=== PATIENT | male | born 1955 | race Caucasian/White ===

== ENCOUNTER 2024-10-12 12:18 | Emergency (ER) | payer MEDICARE, OTHER, SELFPAY ==
--- OUTSIDE RECORDS SUMMARY | 2024-10-12 12:32 | XMS_ITS | Clinical Summary ---
Author Organization [facility] Address [address] [place] [id number] Care Team Providers Care Government Clerk Name Role Phone Ken Chun MD Primary Care Provider [phone] Allergies Active Allergy Reactions Criticality Noted Date Comments Cefprozil Other (See comments) Low Yellow eyes Medications doxazosin (CARDURA) 2 mg tablet Take 1 tablet (2 mg total) by mouth nightly 30 tablet 11 12/15/2023 Active fexofenadine (ISAIAS) 180 mg tablet TAKE 1 TABLET BY MOUTH EVERY DAY 90 tablet 3 12/22/2023 Active atorvastatin (LIPITOR) 40 mg tablet TAKE 1 TABLET BY MOUTH EVERY DAY 90 tablet 3 01/09/2024 Active aspirin 81 mg chewable tablet CHEW ONE TABLET BY MOUTH ONCE DAILY 90 tablet 3 06/01/2024 Active Active Problems Problem Noted Date Diagnosed Date Hyperlipidemia 08/16/2024 Assessment & Plan (08/16/2024 4:28 PM X [employer]AY [employer]LECTRON[employer] WIRING TECHNICIAN): Stable on statin theapry. No new myalgias/arthalgias. BMI 32.0-32.9,adult 08/16/2024 Assessment & Plan (08/16/2024 4:28 PM X [employer]AY ELECTRON[employer] WIRING TECHNICIAN): As above. Coracoid impingement of left shoulder 08/16/2024 Assessment & Plan (08/16/2024 4:29 PM X [employer]AY ELECTRON[employer] WIRING TECHNICIAN): Symmetrical range of motion to the bialteral UE. + impingmenet signs on exam. No evidence of biceps tendonitis. Will follow respnose. Refer to orthopedics. Encounter for Medicare annual wellness exam 03/09 Assessment & Plan (03/31/2024 9:47 AM CDT): Visit preventive in nature. We reviewed medications, chronic conditions, risk factors, lifestyle recommendations. Reviewed immunization recommendations. Follow-up in 6 months for chronic conditions and 1 year for annual wellness. Benign prostatic hyperplasia with urinary freque ncy 03/30/2024 Assessment & Plan (08/16/2024 4:28 PM X [employer]AY [employer] WIRING TECHNICIAN): Stable on doxazosin and will follow response. No orthostasis. Assessment & Plan (03/30/2024 4:08 PM CDT): Patient reports frequency is better. Repeat UA today. Continue doxazosin as prescribed. Obesity (BMI 30.0-34.9) 03/30/2024 Assessment & Plan (08/16/2024 4:28 PM X [employer]AY ELECTRON[employer] WIRING TECHNICIAN): Encourage 150min/week aerobic exericse. Healthy food choices and will follow response. Chronic pain of right knee 08/27/2023 Assessment & Plan (08/27/2023 8:03 AM X RAY ELECTRON[employer] WIRING TECHNICIAN): Referral to orthopedics. Appreciate their expertise. Acute bacterial conjunctivitis of left eye 08/27 Assessment & Plan (08/27/2023 8:03 AM X RAY ELECTRON[employer] WIRING TECHNICIAN): Polymyxin B sent. Two drops to affected eye four times daily for 7 days. Discussed strict hand hygiene. Not to use hand towel/wasthrag/tissues on both eyes. Discussed how highly contagious it is. Aware to not touch dropper to eye/lashes; will contaminate tip of dropper. Reviewed red flags; what would warrant further evaluation. Class 1 obesity due to exces s calories with serious comorbidity and body mass index (BMI) of 31.0 to 31.9 in adult 08/27/2023 Assessment & Plan (03/30/2024 4:08 PM CDT): Continue with diet and exercise. Encounter for screening colonoscopy 03/13/2022 Overview (03/13/2022): Added automatically from request for surgery [id number] Diastasis recti 02/06/2021 Assessment & Plan (02/06/2021 9:30 AM CDT): I do not appreciate any fascial defect on exam. This to me appears more like a diastasis recti. Just for completeness however I will order a CT scan of the abdomen to better appreciate any true hernia. If this does in fact and up to just be a diastasis we have discussed physical therapy for core strengthening as well as an abdominal binder. I will call them back once the CT scan has returned. They are in understanding of the plan. Sleep apnea with use of cont inuous positive airway pressure (CPAP) 02/17/2020 Assessment & Plan (08/16/2024 4:27 PM X [employer] WIRING TECHNICIAN): Continue f/u with sleep medicine and will monitor response. Contniue to monitor response. Assessment & Plan (03/31/2024 10:04 AM CDT): Compliant with CPAP and will continue. Assessment & Plan (08/27/2023 8:03 AM X RAY ELECTRON[employer] WIRING TECHNICIAN): Continue with CPAP. Hx of adenomatous colonic polyps 12/30/2018 Overview (12/30/2018): Added automatically from request for surgery [id number] At risk for heart disease 12/23/2017 Resolved Problems Problem Noted Date Diagnosed Date Resolved Date Sleep disorder 03/09/2019 02/17/2020 Assessment & Plan (03/09/2019 11:06 AM CDT): Recommending sleep study with PSG testing given longevity of daytime hypersomnia, apneic periods noted by , and patient's desire to move forward with appropriate testing for CPAP if indicated. Further recommendations pending results of PSG testing Scleral laceration of left eye 06/30/2018 02/17/2020 Assessment & Plan (06/30/2018 2:01 PM CDT): Recommended Polytrim drops to instill to left eye 4 times a day for the next week, other precautions were all discussed office today in regard to scleral laceration I did encourage patient to follow up with us with any persistence in symptoms or certainly any worsening in symptoms including any blurred vision, eye pain or pressure, as that would indicate need for further consultation Ophthalmology. 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 12/24/2017 Mitral valve disease 01/22/2014 020 Overview (12/11/2016): MITRAL VALVE DISORDER Pure hypercholesterolemia 01/22/2014 Overview (12/11/2016): PURE HYPERCHOLESTEROLEM Encounters Date Type Department Care Team Description 10/12/2024 Nurse Triage [facility] [address] [place] [address] Ken Chun MD 10/04/2024 Telephone [facility] [address] [place] [address] Ken Chun MD 09/30/2024 8:05 AM X RAY ELECTRON[employer] WIRING TECHNICIAN Lab [facility] [address] [place] [address] Hyperlipidemia, unspecified hyperlipidemia type 09/27/2024 Telephone [facility] [address] [place] [address] Phoebe Hampton MA Labs Needed for Appointment 09/20/2024 2:10 PM X RAY E[employer]RON[employer] WIRING TECHNICIAN Ancillary Procedure [facility] Imaging at [address] [phone] Acute pain of left shoulder 09/20/2024 1:45 PM X RAY ELECTRON[employer] WIRING TECHNICIAN Office Visit [facility] Orthopedic and Sports Medicine [address] [place] [phone] Luis Angel Shelton PA Biceps tendinitis of left upper extremity (Primary Dx) 09/20/2024 Telephone [facility] Orthopedic [facility] Sports Medicine [facility] [place] [address] Angelica Gomez MA 08/30/2024 Nurse Triage [facility] [address] [address] Lizet Conrad RN 08/16/2024 2:00 PM X RAY E[employer] WIRING TECHNICIAN [facility] Visit [facility] [address] [address] Ken Chun MD Hyperlipidemia, unspecified hyperlipidemia type (Primary Dx); Sleep apnea with use of continuous positive airway pressure (CPAP); Benign prostatic hyperplasia with urinary frequency; BMI 32.0-32.9,adult; Obesity (BMI 30.0-34.9); Coracoid impingement of left shoulder from Last 3 Months Immunizations Name Administration Dates Next Due Influenza Virus Vaccine Trivalent Mdv 06/02/2024 Influenza, Quad, Adjuvantate d, Intramuscular 06/05/2023,06/17/2022 Influenza, Quadrivalent, Hig h Dose, Preservative Free, Intrr 06/18/2022,06/13/2021,06/28/2020 Influenza, Quadrivalent, Spl it, Preservative Free, Intramuscular 06/30/2018 Influenza, Split 06/08/2009 Influenza, Trivalent, High D ose, Split, Preservative Free, Intramuscular 06/18/2019 Pfizer SARS-CoV-2 Monovalent Vaccination (12+ Yrs) PURPLE 06/22/2021,11/26/2020,11/04/2020 Pneumococcal Conjugate PCV 13 12/29/2018 Pneumococcal Polysaccharide PPV23 03/06/2021 RSV Vaccine, Pref, Recombina nt, Subunit, Adjuvanted, PF, IM (Arexvy) 06/02/2024 Tdap 11/15/2009 Surgical History Surgery Date Site/Laterality Comments TONSILLECTOMY Tonsillectomy OTHER SURGICAL HISTORY cyst left neck COLONOSCOPY 03/08/2014 COLONOSCOPY 03/15/2019 Medical History Medical History Date Comments Hx Other Medical MVP Hx Other Medical mild carpal yuri yazmin synd Sleep apnea with use of cont inuous positive airway pressure (CPAP) 02/17/2020 Family History Medical History Relation Name Comments Heart disease Father Heart disease; Dementia Mother Dementia; Depression Other 1 Family history of Depression; Stroke Other 2 Family history of Stroke; Relation Name Status Comments Father Mother Other 1 Other 2 Social History Tobacco Use Types Packs/Day Years Used Date Smoking Tobacco: Never Smokeless Tobacco: Never Alcohol Use Standard Drinks/Week Comments No 0 (1 standard drink = 0.6 oz pur e alcohol) AUDIT-C Answer Date Recorded Q1: How often do you have a drink containing alc ohol? Monthly or less 08/27/2023 Q2: How many drinks containi ng alcohol do you have on a typical day when you are drinking? 1 or 2 08/27/2023 Q3: How often do you have si x or more drinks on one occasion? Never 08/27/2023 PHQ-2 Answer Date Recorded PHQ-2 Total Score (If total score is 3 or more points, staff should administer the PHQ-9) 0 08/16/2024 Sex and Gender Information Value Date Recorded Sex Assigned at Not on file Legal Sex Male 5:24 PM X RAY ELECT[employer] WIRING TECHNICIAN Gender Identity Not on file Sexual Orientation Not on file Obstetrics History Last Filed Vital Signs Vital Sign Reading Time Taken Comments Blood Pressure 113/72 09/20/2024 2:21 PM X RAY ELECTRON[employer] WIRING TECHNICIAN Pulse 56 09/20/2024 2:21 PM X RAY ELECTRON[employer] WIRING TECHNICIAN Temperature 36.5 ??C (97.7 ??F) 08/16/2024 1:59 PM CS T Respiratory Rate 18 08/16/2024 1:59 PM X RAY ELECTRON[employer] WIRING TECHNICIAN Oxygen Saturation 94% 08/16/2024 1:59 PM X RAY ELECTRON[employer] WIRING TECHNICIAN room air Inhaled Oxygen Concentration - - Weight 100.7 kg (222 lb) 09/20/2024 2:21 PM X RAY ELECTRON[employer] WIRING TECHNICIAN Height 177.8 cm (5' 10 ) 09/20/2024 2:21 PM X RAY ELECTRONICS WIRING TECHNICIAN Body Mass Index 31.85 09/20/2024 2:21 PM X RAY ELECTRONICS WIRING TECHNICIAN Plan of Treatment Health Maintenance Due Date Last Done Comments Hepatitis B Screening 1971 Zoster Vaccine (1 of 2) 2003 DTaP/Tdap/Td Vaccine (2 - Td or Tdap) 11/16/2019 11/15/2009 Covid-19 Vaccine (4 - 2023-2 5 season) 2024 06/22/2021, 11/26/2020, 11/04/2020 Prostate Cancer Screening-PSA 12/14/2024, 01/09/2023, 12/14/2021, Additional history exists Well Visit 65+ 03/30/2025 03/30/2024, 05/0 05/2023, 03/06/2021, Additional history exists Depression Screening 08/16/2025 08/16/2024, 03/30/2024, 12/15/2023, Additional history exists Fall Risk Assessment 08/16/2025 08/16/2024, 03/30/2024, 12/15/2023, Additional history exists Colon Cancer Screening-Colonoscopy 07/23/2026 07/23/2022, 03/15/2019, 03/08/2014, Additional history exists Hepatitis C Screening Completed 12/03/2016 Pneumococcal vaccine 65+ Completed 03/06/2021, 12/08 Colon Cancer Screening-CT Colonography Discontinued 07/23/2022, 03/15/2019, 03/08/2014, Additional history exists Colon Cancer Screening-DNA Stool Discontinued 07/23/2022, 03/15/2019, 03/08/2014, Additional history exists Colon Cancer Screening-FIT Discontinued 07/23, 03/15/2019, 03/08/2014, Additional history exists Colon Cancer Screening-Sigmoidoscopy Discontinued 07/23/2022, 03/15/2019, 03/08/2014, Additional history exists Influenza Vaccine Completed 06/02/2024, , 06/18/2022, Additional history exists Procedures Procedure Name Priority Date/Time Associated Diagnosis Comments EGFR Routine 09/30/2024 8:06 AM X RAY ELECTRONICS WIRING TECHNICIAN Hyperlipidemia, unspecified hyperlipidemia type DIFFERENTIAL AUTO Routine 09/30/2024 8:0 6 AM X RAY ELECTRON[employer] WIRING TECHNICIAN Hyperlipidemia, unspecified hyperlipidemia type LIPID PANEL Routine 09/30/2024 8:06 AM X RAY ELECTRONICS WIRING TECHNICIAN Hyperlipidemia, unspecified hyperlipidemia type COMPREHENSIVE METABOLIC PANEL Routine 09/30/2024 8:06 AM X RAY ELECTRONICS WIRING TECHNICIAN Hyperlipidemia, unspecified hyperlipidemia type CBC WITH AUTO DIFFERENTIAL Routine 09/30/2024 8:06 AM X RAY ELECTRONICS WIRING TECHNICIAN Hyperlipidemia, unspecified hyperlipidemia type XR SHOULDER LEFT 2 OR MORE VIEWS Schedule Routine, Read Routine (OP Routine) 09/20/2024 2:13 PM X RAY ELECTRON[employer] WIRING TECHNICIAN Acute pain of left shoulder PSA SCREEN Routine 12/15/2023 3:50 PM CDT Prostate cancer screening COLONOSCOPY 07/23/2022 7:46 AM X RAY ELECTRON[employer] WIRING TECHNICIAN HM HEPATITIS C SCREENING Routine 12/03/2016 from Last 3 Months or Most Recently Relevant to Health Maintenance Results * eGFR (09/30/2024 8:06 AM X RAY ELECTRON[employer] WIRING TECHNICIAN) eGFR 81 >=60 mL/min/1. 73 m2 Comment: Interpretive Data Reference Interval Normal ?>/= 90 mL/min/1.73m2 Mildly decreased* ? 60 - 89 mL/min/1.73m2 Mildly to moderately decreased ?45 - 59 mL/min/1.73m2 Moderately to severely decreased ??30 - 44 mL/min/1.73m2 Severely decreased ?15 - 29 mL/min/1.73m2 Kidney Failure ?< 15 ??mL/min/1.73m2 *Relative to young adult level Estimated glomerular filtration rate is determined by the 2020 CKD-EPI equation recommended by the National Kidney Foundation (A Unifying Approach to GFR Estimation: Recommendations of the NKF-ASK Task Force on Reassessing the Inclusion of Race in Diagnosing Kidney Disease, JASN 2020). The CKD-EPI equation should not be used for patients with unstable renal function and has not been validated in children and those over 70. Current interpretive data was last reviewed 2021. Testing performed by: [address], [id number] Blood 09/30/2024 8:06 AM X RAY ELECTRON[employer] WIRING TECHNICIAN 09/30/2024 12:37 PM X RAY ELECTRON[employer] WIRING TECHNICIAN Ken Chun MD LAB BLOOD ORDERABLES Samantha l Result [facility] ([place]) [facility] Department [place] [address] * Differential, auto (09/30/2024 8:06 AM X RAY ELECTRONICS WIRING TECHNICIAN) Neutrophil abs 3.5 1.5 - 6.5 K/cumm Comment:Testing performed by : [address], [address] Imm gran abs 0.0 0.0 - 0.1 K/cumm [facility] ([place]) Comment:Testing performed by : [address], [address] Lymphocyte abs 1.4 0.8 - 3.3 K/cumm [facility] ([place]) Comment:Testing performed by : [address], [address] Monocyte abs 0.4 0.2 - 0.8 K/cumm [facility] ([place]) Comment:Testing performed by : [address], [address] Eosinophil abs 0.1 0.0 - 0.5 K/cumm [facility] ([place]) Comment:Testing performed by : [address], [address] Basophil abs 0.0 0.0 - 0.1 K/cumm [facility] ([place]) Comment:Testing performed by : [address], [address] Neutrophil pct 63.6 % [facility] ([place]) Comment: Interpretive Data Percent cell count reference ranges are not reported, since discordance with absolute values may lead to misinterpretation of CBC data. Current Interpretive Data was last revised on 2017. Testing performed by: [facility], [address], [place]., [address] Imm gran pct 0.2 % [facility] ([place]) Comment: Interpretive Data Percent cell count reference ranges are not reported, since discordance with absolute values may lead to misinterpretation of CBC data. Current Interpretive Data was last revised on 2017. Testing performed by: [facility], [address] [place] [address]., [address] Lymphocyte pct 25.9 % [facility] ([place]) Comment: Interpretive Data Percent cell count reference ranges are not reported, since discordance with absolute values may lead to misinterpretation of CBC data. Current Interpretive Data was last revised on 2017. Testing performed by: [facility], [address] [place] [address]., [address] Monocyte pct 7.7 % [facility] ([place]) Comment: Interpretive Data Percent cell count reference ranges are not reported, since discordance with absolute values may lead to misinterpretation of CBC data. Current Interpretive Data was last revised on 2017. Testing performed by: [facility], [address] [place] [address]., [address] Eosinophil pct 2.0 % [facility] ([place]) Comment: Interpretive Data Percent cell count reference ranges are not reported, since discordance with absolute values may lead to misinterpretation of CBC data. Current Interpretive Data was last revised on 2017. Testing performed by: [facility], [address] [place] [address]., [address] Basophil pct 0.6 % [facility] ([place]) Comment: Interpretive Data Percent cell count reference ranges are not reported, since discordance with absolute values may lead to misinterpretation of CBC data. Current Interpretive Data was last revised on 2017. Testing performed by: [address] [address] Blood 09/30/2024 8:06 AM X RAY ELECT[employer] WIRING TECHNICIAN 09/30/2024 12:32 PM X RAY ELECTRON[employer] WIRING TECHNICIAN us Ken Chun MD LAB BLOOD ORDERABLES Samantha garcia Result [facility] ([place]) [facility] Department [place] [address] * CBC with auto differential (09/30/2024 8:06 AM X RAY ELECTRON[employer] WIRING TECHNICIAN) [facility] Signature WBC 5.4 3.8 - 9.9 K/cumm Comment:Testing performed by : [address], [address] Hgb 14.5 13.0 - 17.5 g/dL [facility] ([place]) Comment:Testing performed by : [address], [address] Hct 44.8 38.9 - 50.3 % [facility] ([place]) Comment:Testing performed by : [address], [address] Plt 204 150 - 400 K/cumm [facility] ([place]) Comment:Testing performed by : [address], [address] MPV 10.3 9.1 - 12.3 fL [facility] ([place]) Comment:Testing performed by : [address], [address] RBC 5.01 4.30 - 5.80 M/cumm [facility] ([place]) Comment:Testing performed by : [address], [address] MCV 89.4 81.3 - 96.4 fL [facility] ([place]) Comment:Testing performed by : [address], [address] MCH 28.9 27.1 - 33.3 pg [facility] ([place]) Comment:Testing performed by : [address], [address] MCHC 32.4 32.3 - 35.7 g/dL [facility] ([place]) Comment:Testing performed by : [address], [address] RDW CV 13.2 11.1 - 14.9 % [facility] ([place]) Comment:Testing performed by : [address], [address] RDW SD 42.8 35.7 - 48.1 fL [facility] ([place]) Comment:Testing performed by : [address] [place]., [address] NRBC abs 0.00 0.00 - 0.01 K/cumm [facility] ([place]) Comment:Testing performed by : [facility], [address] [place] [address]., [address] Blood 09/30/2024 8:06 AM X RAY ELECTRON[employer] WIRING TECHNICIAN 09/30/2024 12:32 PM X R[employer] ELECTRON[employer] WIRING TECHNICIAN us Ken Chun MD LAB BLOOD ORDERABLES Samantha garcia Result [facility] ([place]) [facility] Department [place] [address] * Lipid panel (09/30/2024 8:06 AM X RAY ELECT[employer] WIRING TECHNICIAN) Cholesterol 166 30 - 199 mg/dL Comment: Interpretive Data Ages < or = 19 years ??Acceptable: ? <170 mg/dL ??Borderline high: ??170-199 mg/dL ??High: ? >or= 200 mg/dL Ages > or = 20 years ??Desirable: ?<200 mg/dL ??Borderline high: ??200-239 mg/dL ??High: ? >or= 240 mg/dL Literature References: 1. Expert Panel on Integrated Guidelines for Cardiovascular Health and Risk Reduction in Children and Adolescents. Pediatrics 2011;128:S213 2. NCEP Expert Panel. Circulation 2004;110:227 Current Interpretive Data was last revised on 2018. Testing performed by: [facility], [address] [place] [address]., [address] Triglycerides 79 <=149 mg/dL [facility] ([place]) Comment: Interpretive Data Ages < or = 9 years ??Acceptable: ? <75 mg/dL ??Borderline high: ??75-99 mg/dL ??High: ? >or= 100 mg/dL Ages 10 to 20 years ??Acceptable: ? <90 mg/dL ??Borderline high: ??90-129 mg/dL ??High: ? >or= 130 mg/dL Ages > or = 20 years ??Desirable: ?<150 mg/dL ??Borderline high: ??150-199 mg/dL ??High: ? 200-499 mg/dL ?Very high: ?? >or= 499 mg/dL Literature References: 1. Expert Panel on Integrated Guidelines for Cardiovascular Health and Risk Reduction in Children and Adolescents. Pediatrics 2011;128:S213 2. NCEP Expert Panel. Circulation 2004;110:227 Current Interpretive Data was last revised on 2018. Testing performed by: [facility], [address] [place] [address]., [address] HDL 59 >=40 mg/dL [facility] ([place]) Comment: Interpretive Data Ages < or = 19 years ??Acceptable: ? >45 mg/dL ??Borderline low: ?? 40-45 mg/dL ??Low: ? <40 mg/dL Ages > or = 20 years ??Desirable: ?>or= 60 mg/dL ??Low: ? <40 mg/dL Literature References: 1. Expert Panel on Integrated Guidelines for Cardiovascular Health and Risk Reduction in Children and Adolescents. Pediatrics 2011;128:S213 2. NCEP Expert Panel. Circulation 2004;110:227 Current Interpretive Data was last revised on 2018. Testing performed by: [facility], [address] [place] [address]., [address] LDL, calculated 92 <=129 mg/dL [facility] ([place]) Comment: Interpretive Data Ages < or = 19 years ??Acceptable: ? <110 mg/dL ??Borderline high: ??110-129 mg/dL ??High: ?>or= 130 mg/dL Ages > or = 20 years ??Optimal: ? <100 mg/dL ??Near optimal: ?100-129 mg/dL ??Borderline high: ?? 130-159 mg/dL ??High: ?>160 mg/dL Calculated using the Enrique LDL-C estimating equation. This equation was implemented on 2024. Prior to this date LDL-C was estimated using the Friedewald equation. Literature References: 1. Expert Panel on Integrated Guidelines for Cardiovascular Health and Risk Reduction in Children and Adolescents. Pediatrics 2011;128:S213 2. NCEP Expert Panel. Circulation 2004;110:227 3. Enrique Watson et al. NIKKI Cardiol. 2020 January 06;5(5):540-548. doi: 10.1001/jamacardio.2020.0013 Current Interpretive Data was last revised on 2024. Testing performed by: [address] [address] Non-HDL Cholesterol 107 mg/dL [facility] ([place]) Comment: Interpretive Data Ages < or = 19 years ??Acceptable: ?<120 mg/dL ??Borderline high: ??120-144 mg/dL ??High: ?>145 mg/dL Ages > or = 20 years ??When triglycerides are >200 mg/dL, Non-HDL cholesterol is a secondary target of ? therapy with treatment goals that are 30 mg/dL greater than the LDL cholesterol target. ? Literature References: 1. Expert Panel on Integrated Guidelines for Cardiovascular Health and Risk Reduction in Children and Adolescents. Pediatrics 2011;128:S213 2. NCEP Expert Panel. Circulation 2004;110:227 Current Interpretive Data was last revised on 2018. Testing performed by: [facility], [address] [place] [address]., [address] Chol/HDL ratio 3 [facility]EL[facility] ([place]) Comment:Testing performed by : [facility], [address] [place] [address]., [address] Blood 09/30/2024 8:06 AM X RAY ELECTRON[employer] WIRING TECHNICIAN 09/30/2024 12:32 PM X R[employer] ELECT[employer] WIRING TECHNICIAN us Ken Chun MD LAB BLOOD ORDERABLES Samantha garcia Result [facility] ([place]) [facility] Department [place] [address] * Comprehensive metabolic panel (09/30/2024 8:06 AM X RAY ELECTRON[employer] WIRING TECHNICIAN) Sodium 139 135 - 145 mmol/L Comment:Testing performed by : [facility], [address] [place] [address]., [address] Potassium, pl 4.4 3.3 - 4.9 mmol/L JULIANN [facility] ([place]) Comment:Testing performed by : [facility], [address] [place] [address], [address] Chloride 101 97 - 110 mmol/L [facility] ([place]) Comment:Testing performed by : [facility], [address] [place] [address], [address] CO2 27 22 - 32 mmol/L JULIANN [facility] ([place]) Comment:Testing performed by : [address], [address] Anion gap 11 2 - 15 mmol/L JULIANN [facility] ([place]) Comment:Testing performed by : [facility], [address] [place] [address], [address] BUN 16 6 - 25 mg/dL [facility] ([place]) Comment:Testing performed by : [address], [address] Creatinine 0.99 0.80 - 1.30 mg/dL [facility] ([place]) Comment:Testing performed by : [address], [address] Glucose 121 70 - 199 mg/dL [facility] ([place]) Comment: Interpretive Data Fasting glucose >/= 126 mg/dl is diagnostic for diabetes. ?? Fasting is defined as no caloric intake for at least 8 hours. Fasting glucose between 100 mg/dl to 125 mg/dl is diagnostic of prediabetes. In a patient with classic symptoms of hyperglycemia or hyperglycemic crisis, a random glucose >/= 200 mg/dl is diagnostic for diabetes. In the absence of unequivocal hyperglycemia, results should be confirmed by repeat testing. The classification and Diagnosis of Diabetes Diabetes Care 202; 46: S19-S40. Current interpretive data was last revised 2022. Testing performed by: [facility], [address], [place]., [address] Calcium 9.3 8.5 - 10.3 mg/dL [facility] ([place]) Comment:Testing performed by : [facility], [address] [place] [address], [id number] Bilirubin, total 0.6 0.1 - 1.2 mg/dL [facility] ([place]) Comment:Testing performed by : [facility], [address] [place] [address], [address] Protein, pl 6.9 6.5 - 8.5 g/dL [facility] ([place]) Comment:Testing performed by : [facility], [address] [place] [address], [address] Albumin 4.2 3.5 - 5.0 g/dL [facility] ([place]) Comment:Testing performed by : [address], [address] Alk phos 89 40 - 130 Units/L [facility] ([place]) Comment:Testing performed by : [address], [address] ALT 21 7 - 55 Units/L [facility] ([place]) Comment:Testing performed by : [facility], [address] [place] [address], [address] AST 24 10 - 50 Units/L [facility] ([place]) Comment:Testing performed by : [address], [address] Blood 09/30/2024 8:06 AM X RAY ELECTRONICS WIRING TECHNICIAN 09/30/2024 12:32 PM X RAY ELECTRON[employer] WIRING TECHNICIAN Ken Chun MD LAB BLOOD ORDERABLES Samantha garcia Result [facility] ([place]) [facility] Department [place] [address] * XR Shoulder Left 2 or More Views (09/20/2024 2:13 PM X RAY ELECTRON[employer] WIRING TECHNICIAN) Anatomical Region Laterality Modality Upper Extremities, Shoulder Left Digi bk Radiography Narrative 09/20/2024 2:24 PM X RAY ELECTRON[employer] WIRING TECHNICIAN Four views of the left shoulder negative for fracture dislocation or osseous lesion. 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 us Luis Angel PARKER IMG XR PROCEDURES Final Res ult * PSA screen (12/15/2023 3:50 PM CDT) PSA-Total 1.61 <=6.20 ng/mL Comment: Interpretive Data ?AGE ? SEX ?REFERENCE INTERVAL 0 minutes-150 years ?Female ?None 0 minutes-49 years ? Male ?None ? 50-59 years ? Male ?0-3.90 ? 60-69 years ? Male ?0-5.40 ? 70-79 years ? Male ?0-6.20 ? 80-150 years ?Male ?0-6.20 The Kaylie PSA Total assay procedure was used. Results from different manufacturers or methods may not be comparable. Serial testing should be performed using the same method. Current interpretive data last revised 22. Testing performed by: [facility], [address] [place] [address]., [facility] Blood 12/15/2023 3:50 PM CDT 12/15/2023 9:13 PM CDT us Ken Chun MD LAB BLOOD ORDERABLES Samantha garcia Result [facility] ([place]) 1 [facility] Department [place] [address] * COLONOSCOPY (07/23/2022 7:46 AM X RAY ELECTRON[employer] WIRING TECHNICIAN) Anatomical Region Laterality Modality Other Narrative Procedure Note Meghann Almaguer MD - 07/23/2022 7:46 AM CST [facility] Patient Name: Lionel Ocampo Procedure Date: 07/23/2022 7:46 AM Date of : 1955 Admit Type: Outpatient Age: 66 Gender: Male Attending MD: Meghann Almaguer M.D. Room: [facility] ENDOSCOPY ROOM 1 Note Status: Finalized Patient Profile: This is a 66 year old male. No family history ofcolon cancer. History of adenoma polyps. Procedure: Colonoscopy Indications: High risk colon cancer surveillance: Personalhistory of colonic polyps, Last colonoscopy: March 2019 Referring MD: Ken Chun M.D. Providers: Meghann Almaguer M.D. Impression: - One 4 mm polyp in the ascending colon, removedwith a jumbo cold forceps. Resected and retrieved. - Diverticulosis in the sigmoid colon. - Internal hemorrhoids. Recommendation: - Await pathology results. - Repeat colonoscopy in 4 years for screeningpurposes. - Continue present medications. Medicines: Monitored Anesthesia Care Complications: No immediate complications. Estimated Blood Loss: Estimated blood loss: none. Procedure: Pre-Anesthesia Assessment: - Prior to the procedure, a History and Physicalwas performed, and patient medications and allergieswere reviewed. The patient's tolerance of previous anesthesia was also reviewed. The risks andbenefits of the procedure and the sedation options and risks were discussed with the patient. All questions were answered, and informed consent was obtained. Prior Anticoagulants: The patient has taken noanticoagulant or antiplatelet agents. ASA Grade Assessment: III -A patient with severe systemic disease. Afterreviewing the risks and benefits, the patient was deemed in satisfactory condition to undergo the procedure. The benefits, risks and alternatives of theprocedure and sedation were discussed and informed consentwas obtained. All questions were answered. Please referto the signed informed consent document in the medical record. The bowel preparation used was Miralax and bisacodyl tablets via split dose instruction. The scope was passed under direct vision. The Pediatric Colonoscope PCF-H190L [id number] was introducedthrough the anus and advanced to the the cecum, identifiedby appendiceal orifice and ileocecal valve. Thequality of the bowel preparation was good. Bowel prep was administered using a split dose. Findings: The perianal and digital rectal examinations were normal. The cecum appeared normal. A 4 mm polyp was found in the ascending colon. The polyp was sessile. The polyp was removed with a jumbo cold forceps. Resection andretrieval were complete. The descending colon and transverse colon appeared normal. Many small-mouthed diverticula were found in the sigmoid colon. Internal hemorrhoids were found during retroflexion. The hemorrhoids were small. Electronically signed by Meghann Almaguer M.D. Meghann Almaguer M.D. 07/23/2022 10:17:22 AM Number of Addenda: 0 Note Initiated On: 07/23/2022 7:46 AM Procedure Code(s): --- Professional --- 96564, Colonoscopy, flexible; with biopsy, single or multiple Diagnosis Code(s): --- Professional --- K64.8, Other hemorrhoids D12.2, Benign neoplasm of ascending colon K57.30, Diverticulosis of large intestine without perforation orabscess without bleeding Z86.010, Personal history of colonic polyps CPT copyright 2020 [employer]. All rights reserved. The codes documented in this report are preliminary and upon invoice coder reviewmay be revised to meet current compliance requirements. Recognized by the [employer] for promoting quality in endoscopy Meghann Almaguer MD ENDOSCOPY PROCEDURES Final Result * HEPATITIS C SCREENING (12/03/2016) HEP C Normal Historical Provider HEALTH MAINTENANCE Final Result from Last 3 Months or Most Recently Relevant to Health Maintenance Insurance MEDICARE [employer] SENIOR SUPPLEMENT MEDICARE [facility] MEDICARE [facility] Advance Directives For more information, please contact: [phone] * Full Code (Latest Code Status on File) Date Activated Date Inactivated Comments 07/23/2022 7:58 AM 07/23/2022 2:55 PM * Full Code Date Activated Date Inactivated Comments 07/23/2022 7:58 AM 07/23/2022 7:58 AM * Full Code Date Activated Date Inactivated Comments 03/15/2019 8:00 AM 03/15/2019 2:41 PM * Full Code Date Activated Date Inactivated Comments 03/15/2019 8:00 AM 03/15/2019 8:00 AM Care Teams Government Clerk Relationship Specialty Start Date End Date Ken Chun MD [address] [place] [address] PCP - General Family Medicine 01/22/22
--- OUTSIDE RECORDS SUMMARY | 2024-10-12 12:32 | XMS_ITS | Encounter Summary ---
Author Organization [facility] Address [address] [place] [address] Care Team Providers Care Hand Dry Cleaner Name Role Phone Ken Chun MD Primary Care Provider [phone] Reason for Visit * Reason Onset Date Comments Vomiting 10/12/2024 6 Encounter Details Date Type Department Care Team (Late st Contact Info) Description 10/12/2024 Nurse Triage [facility] [address] [address] Ken Chun MD [address] [place] [id number] Social History Tobacco Use Types Packs/Day Years [...] on file Legal Sex Male 5:24 PM CHIEF ULTRASOUND TECHNOLOGIST Gender Identity Not on file Sexual Orientation Not on file documented as of this encounter Miscellaneous Notes * Telephone Encounter - Isabel Lund RN - 10/12/2024 11:05 AM CHIEF ULTRASOUND TECHNOLOGIST Pt calls into mental telepathist after having symptom onset at 0330 with having vomiting and diarrhea. Pt's had similar symptoms as well. Pt notes having vomited 12 times since 0 and had 15-20 loose stools. Pt notes emesis initially clear, then red and now brown. Pt has drank a red Gatorade. Pt denies blood in stool. Pt reports he has not vomited since 929. Pt denies abdominal pain, coffee groundmaterial in vomit, skin pallor or fever. Pt notes dizziness when bending over and has a dull LEE. Pthas taken one zofran and 3 imodium tablets since this morning. Pt takes daily aspirin, no other blood thinners. Ken Chun MD sent [place] and recommends UC for eval. Pt advised of this and educated that if having dizziness, abdominal pain, red colored emesis again or coffee ground material or skin pallor to go to ED right away. Pt also advised to take small sips or clear fluids for now and verbalized understanding. Provider contacted via secure chat for ED disposition consult. Recommendation from provider:Send toRCC/UC Reason for Disposition SEVERE vomiting (e.g., 6 or more times/day) (Exception: Patient sounds well, is drinking liquids, does not sound dehydrated, and vomiting has lasted less than 24 hours.) Protocols used: [id number] F ULTRASOUND TECHNOLOGIST * Telephone Encounter - Isabel Lund RN - 10/12/2024 11:01 AM CHIEF ULTRASOUND TECHNOLOGIST Regarding: Severe vomiting (went from clear to red to brown), diarrhea ----- Message from Beverly Eden sent at 10/12/2024 11:00 AM CHIEF ULTRASOUND TECHNOLOGIST ----- Symptom Based Call Chief Complaint(s): Severe vomiting (went from clear to red to brown), diarrhea Duration: This morning What type of symptom(s) is the patient experiencing? Red Flag. Is the patient concerned they are experiencing a medical emergency requiring an ambulance? No Additional Comments: Has taken Imodium for the diarrhea Does message need to be routed? Yes-Action Needed F ULTRASOUND TECHNOLOGIST documented in this encounter Plan of Treatment Not on file documented as of this encounter Visit Diagnoses Not on filedocumented in this encounter Care Teams Hand Dry Cleaner Relationship Specialty Start Date End Date Ken Chun MD [address] [place] [address] PCP - General Family Medicine 01/22/22 documented as of this encounter
--- OUTSIDE RECORDS SUMMARY | 2024-10-12 12:32 | XMS_ITS | Encounter Summary ---
Author Organization [facility] Address [address] [place] [address] Phone Care Team Providers Care Feeder Operator Automatic Name Role Phone Jay Brito MD Primary Care Provider [phone] Ken Chun MD Primary Care Provider [phone] Encounter Details Date Type Department Care Team (Late st Contact Info) Description 12/09/2017 Orders Only [facility] ProviderNigel MD [address] [place] [address] Social History Tobacco Use Types Packs/Day Years Used Date Smoking Tobacco: Never Alcohol Use Standard Drinks/Week Comments No 0 (1 standard drink = 0.6 oz pur e alcohol) Sex and Gender Information Value Date Recorded Sex Assigned at Not on file Legal Sex Male 5:24 PM CIRCULATION ANALYST Gender Identity Not on file Sexual Orientation Not on file documented as of this encounter Plan of Treatment Not on file documented as of this encounter Procedures Procedure Name Priority Date/Time Associated Diagnosis Comments DISCHARGE LABORATORY CUMULATIVE REPORT 12/09/2017 12:00 AM CDT documented in this encounter Results * DISCHARGE LABORATORY CUMULATIVE REPORT (12/09/2017 12:00 AM CDT) Narrative 12/09/2017 12:00 AM CDT Ordered by an unspecified provider. Historical Provider LAB BLOOD ORDERABLES Samantha l Result documented in this encounter Visit Diagnoses Not on filedocumented in this encounter Care Teams Feeder Operator Automatic Relationship Specialty Start Date End Date Jay Brito MD PCP - General 12/06/16 01/21/22 Ken Chun MD [address] [place] [address] PCP - General Family Medicine 01/22/22 documented as of this encounter
--- OUTSIDE RECORDS SUMMARY | 2024-10-12 12:33 | XMS_ITS | Referral Summary ---
Author Organization 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 Name Role Phone Ken Chun MD Primary Care Provider [phone] Encounters Date Type Department Care Team Description 10/12/2024 Nurse Triage [facility] [address] [phone] Ken Chun MD 10/04/2024 Telephone [facility] [address] [phone] Ken Chun MD 09/30/2024 8:05 AM ADDICTIONS COUNSELOR ASSISTANT Lab [facility] [address] [place] [address] Hyperlipidemia, unspecified hyperlipidemia type 09/27/2024 Telephone [facility] [place] [address] [place] [address] Phoebe Hampton MA Labs Needed for Appointment 09/20/2024 2:10 PM ADDICTIONS COUNSELOR ASSISTANT Ancillary Procedure [facility] Imaging at [address] [phone] Acute pain of left shoulder 09/20/2024 1:45 PM ADDICTIONS COUNSELOR ASSISTANT Office Visit [facility] Orthopedic [facility] Sports Medicine [address] [place] [phone] Luis Angel Shelton PA Biceps tendinitis of left upper extremity (Primary Dx) 09/20/2024 Telephone [facility] [address] [place] [phone] Angelica Gomez MA 08/30/2024 Nurse Triage [facility] [address] [address] Lizet Conrad RN 08/16/2024 2:00 PM ADDICTIONS COUNSELOR ASSISTANT Office Visit [facility] [address] [address] Ken Chun MD Hyperlipidemia, unspecified hyperlipidemia type (Primary Dx); Sleep apnea with use of continuous positive airway pressure (CPAP); Benign prostatic hyperplasia with urinary frequency; BMI 32.0-32.9,adult; Obesity (BMI 30.0-34.9); Coracoid impingement of left shoulder from Last 3 Months Allergies Active Allergy Reactions Criticality Noted Date [...] 08/16/2024 Assessment & Plan (08/16/2024 4:28 PM ADDICTIONS COUNSELOR ASSISTANT): Stable on statin theapry. No new myalgias/arthalgias. BMI 32.0-32.9,adult 08/16/2024 Assessment & Plan (08/16/2024 4:28 PM ADDICTIONS COUNSELOR ASSISTANT): As above. Coracoid impingement of left shoulder 08/16/2024 Assessment & Plan (08/16/2024 4:29 PM ADDICTIONS COUNSELOR ASSISTANT): Symmetrical range of motion to the bialteral [...] 03/30/2024 Assessment & Plan (08/16/2024 4:28 PM ADDICTIONS COUNSELOR ASSISTANT): Stable on doxazosin and will follow response. No orthostasis. Assessment & Plan (03/30/2024 4:08 PM CDT): Patient reports frequency is better. Repeat UA today. Continue doxazosin as prescribed. Obesity (BMI 30.0-34.9) 03/30/2024 Assessment & Plan (08/16/2024 4:28 PM ADDICTIONS COUNSELOR ASSISTANT): Encourage 150min/week aerobic exericse. Healthy food choices and will follow response. Chronic pain of right knee 08/27/2023 Assessment & Plan (08/27/2023 8:03 AM ADDICTIONS COUNSELOR ASSISTANT): Referral to orthopedics. Appreciate their expertise. Acute bacterial conjunctivitis of left eye 08/27 Assessment & Plan (08/27/2023 8:03 AM ADDICTIONS COUNSELOR ASSISTANT): Polymyxin B sent. Two drops to affected [...] (03/13/2022): Added automatically from request for surgery [id number] Diastasis recti 02/06/2021 Assessment & Plan (02/06/2021 [...] 02/17/2020 Assessment & Plan (08/16/2024 4:27 PM ADDICTIONS COUNSELOR ASSISTANT): Continue f/u with sleep medicine and will monitor response. Contniue to monitor response. Assessment & Plan (03/31/2024 10:04 AM CDT): Compliant with CPAP and will continue. Assessment & Plan (08/27/2023 8:03 AM ADDICTIONS COUNSELOR ASSISTANT): Continue with CPAP. Hx of adenomatous colonic polyps 12/30/2018 Overview (12/30/2018): Added automatically from request for surgery [id number] At risk for heart disease 12/23/2017 Resolved [...] Pure hypercholesterolemia 01/22/2014 Overview (12/11/2016): PURE HYPERCHOLESTEROLEM Immunizations Name Administration Dates Next Due Influenza [...] Adjuvanted, PF, IM (Arexvy) 06/02/2024 Tdap 11/15/2009 Social History Tobacco Use Types Packs/Day Years [...] on file Legal Sex Male 5:24 PM ADDICTIONS COUNSELOR ASSISTANT Gender Identity Not on file Sexual Orientation Not on file Last Filed Vital Signs Vital Sign Reading Time Taken Comments Blood Pressure 113/72 09/20/2024 2:21 PM ADDICTIONS COUNSELOR ASSISTANT Pulse 56 09/20/2024 2:21 PM ADDICTIONS COUNSELOR ASSISTANT Temperature 36.5 ??C (97.7 ??F) 08/16/2024 1:59 PM CS T Respiratory Rate 18 08/16/2024 1:59 PM ADDICTIONS COUNSELOR ASSISTANT Oxygen Saturation 94% 08/16/2024 1:59 PM ADDICTIONS COUNSELOR ASSISTANT room air Inhaled Oxygen Concentration - - Weight 100.7 kg (222 lb) 09/20/2024 2:21 PM ADDICTIONS COUNSELOR ASSISTANT Height 177.8 cm (5' 10 ) 09/20/2024 2:21 PM ADDICTIONS COUNSELOR ASSISTANT Body Mass Index 31.85 09/20/2024 2:21 PM ADDICTIONS COUNSELOR ASSISTANT Plan of Treatment Not on file Procedures Procedure Name Priority Date/Time Associated Diagnosis Comments EGFR Routine 09/30/2024 8:06 AM ADDICTIONS COUNSELOR ASSISTANT Hyperlipidemia, unspecified hyperlipidemia type DIFFERENTIAL AUTO Routine 09/30/2024 8:0 6 AM ADDICTIONS COUNSELOR ASSISTANT Hyperlipidemia, unspecified hyperlipidemia type LIPID PANEL Routine 09/30/2024 8:06 AM ADDICTIONS COUNSELOR ASSISTANT Hyperlipidemia, unspecified hyperlipidemia type COMPREHENSIVE METABOLIC PANEL Routine 09/30/2024 8:06 AM ADDICTIONS COUNSELOR ASSISTANT Hyperlipidemia, unspecified hyperlipidemia type CBC WITH AUTO DIFFERENTIAL Routine 09/30/2024 8:06 AM ADDICTIONS COUNSELOR ASSISTANT Hyperlipidemia, unspecified hyperlipidemia type XR SHOULDER LEFT 2 OR MORE VIEWS Schedule Routine, Read Routine (OP Routine) 09/20/2024 2:13 PM ADDICTIONS COUNSELOR ASSISTANT Acute pain of left shoulder PSA SCREEN Routine 12/15/2023 3:50 PM CDT Prostate cancer screening COLONOSCOPY 07/23/2022 7:46 AM ADDICTIONS COUNSELOR ASSISTANT HM HEPATITIS C SCREENING Routine 12/03/2016 from Last 3 Months or Most Recently Relevant to Health Maintenance Results * eGFR (09/30/2024 8:06 AM ADDICTIONS COUNSELOR ASSISTANT) eGFR 81 >=60 mL/min/1. 73 m2 Comment: [...] of Race in Diagnosing Kidney Disease, JASN 202). The CKD-EPI equation should not be used for patients with unstable renal function and has not been validated in children and those over 70. Current interpretive data was last reviewed 2021. Testing performed by: [facility], [address] [place] [address], [place]., [address] Blood 09/30/2024 8:06 AM ADDICTIONS COUNSELOR ASSISTANT 09/30/2024 12:37 PM ADDICTIONS COUNSELOR ASSISTANT us Ken Chun MD LAB BLOOD ORDERABLES Samantha garcia Result [facility] Department [place] [address] * Differential, auto (09/30/2024 8:06 AM ADDICTIONS COUNSELOR ASSISTANT) Neutrophil abs 3.5 1.5 - 6.5 K/cumm Comment:Testing performed by : [facility], [address] [place] [address]., [address] Imm gran abs 0.0 0.0 - 0.1 K/cumm [facility] ([place]) Comment:Testing performed by : [facility], [address] [place] [address]., [address] Lymphocyte abs 1.4 0.8 - 3.3 K/cumm [facility] ([place]) Comment:Testing performed by : [facility], [address] [place] [address], [address] Monocyte abs 0.4 0.2 - 0.8 K/cumm [facility] ([place]) Comment:Testing performed by : [facility], [address] [place] [address]., [address] Eosinophil abs 0.1 0.0 - 0.5 K/cumm [facility] ([place]) Comment:Testing performed by : [address] [address] Basophil abs 0.0 0.0 - 0.1 K/cumm [facility] ([place]) Comment:Testing performed by : [address] [address] Neutrophil pct 63.6 % [facility] ([place]) Comment: Interpretive Data Percent cell count reference ranges are not reported, since discordance with absolute values may lead to misinterpretation of CBC data. Current Interpretive Data was last revised on 2017. Testing performed by: [address], [address] Imm gran pct 0.2 % [facility] ([place]) Comment: Interpretive Data Percent cell count reference ranges are not reported, since discordance with absolute values may lead to misinterpretation of CBC data. Current Interpretive Data was last revised on 2017. Testing performed by: [facility], [address] [place] [address]., [address] Lymphocyte pct 25.9 % [facility] Erich [facility] ([place]) Comment: Interpretive Data Percent cell count reference ranges are not reported, since discordance with absolute values may lead to misinterpretation of CBC data. Current Interpretive Data was last revised on 2017. Testing performed by: [facility], [address] [place] [address]., [address] Monocyte pct 7.7 % [facility] ([place]) Comment: Interpretive Data Percent cell count reference ranges are not reported, since discordance with absolute values may lead to misinterpretation of CBC data. Current Interpretive Data was last revised on 2017. Testing performed by: [facility], [address] [place] [address]., [id number] Eosinophil pct 2.0 % [facility] Erich [facility] ([place]) Comment: Interpretive Data Percent cell count reference ranges are not reported, since discordance with absolute values may lead to misinterpretation of CBC data. Current Interpretive Data was last revised on 2017. Testing performed by: [facility], [address] [place] [address]., [address] Basophil pct 0.6 % [facility] ([place]) Comment: Interpretive Data Percent cell count reference ranges are not reported, since discordance with absolute values may lead to misinterpretation of CBC data. Current Interpretive Data was last revised on 2017. Testing performed by: [address] [address] Blood 09/30/2024 8:06 AM ADDICTIONS COUNSELOR ASSISTANT 09/30/2024 12:32 PM ADDICTIONS COUNSELOR ASSISTANT us Ken Chun MD LAB BLOOD ORDERABLES Samantha garcia Result [facility] ([place]) 1 [facility] Department [place] [address] * CBC with auto differential (09/30/2024 8:06 AM ADDICTIONS COUNSELOR ASSISTANT) WBC 5.4 3.8 - 9.9 K/cumm Comment:Testing performed by : [address], [address] Hgb 14.5 13.0 - 17.5 g/dL [facility] ([place]) Comment:Testing performed by : [address], [address] Hct 44.8 38.9 - 50.3 % [facility] ([place]) Comment:Testing performed by : [facility], [address] [place] [address], [address] Plt 204 150 - 400 K/cumm [facility] ([place]) Comment:Testing performed by : [address], [address] MPV 10.3 9.1 - 12.3 fL [facility] ([place]) Comment:Testing performed by : [address], [address] RBC 5.01 4.30 - 5.80 M/cumm [facility] ([place]) Comment:Testing performed by : [address], [address] MCV 89.4 81.3 - 96.4 fL [facility] ([place]) Comment:Testing performed by : [address], [address] MCH 28.9 27.1 - 33.3 pg [facility] ([place]) Comment:Testing performed by : [address], [address] MCHC 32.4 32.3 - 35.7 g/dL [facility] ([place]) Comment:Testing performed by : [address], [address] RDW CV 13.2 11.1 - 14.9 % [facility] ([place]) Comment:Testing performed by : [address], [address] RDW SD 42.8 35.7 - 48.1 fL [facility] ([place]) Comment:Testing performed by : [address], [address] NRBC abs 0.00 0.00 - 0.01 K/cumm [facility] ([place]) Comment:Testing performed by : [address] [place]., [address] Blood 09/30/2024 8:06 AM ADDICTIONS COUNSELOR ASSISTANT 09/30/2024 12:32 PM ADDICTIONS COUNSELOR ASSISTANT us Ken Chun MD LAB BLOOD ORDERABLES Samantha radha Result [facility] ([place] 1 [facility] Department [place] [address] * Lipid panel (09/30/2024 8:06 AM ADDICTIONS COUNSELOR ASSISTANT) Cholesterol 166 30 - 199 mg/dL Comment: [...] last revised on 2018. Testing performed by: [facility], [address] [place] [address]., [address] Triglycerides 79 <=149 mg/dL [facility] ([place]) [...] last revised on 2018. Testing performed by: [facility], [address] [place] [address]., [address] HDL 59 >=40 mg/dL [facility] ([place]) [...] last revised on 2018. Testing performed by: [facility], [address] [place] [address]., [address] LDL, calculated 92 <=129 mg/dL [facility] ([place]) Comment: Interpretive Data Ages < or = 19 years ??Acceptable: ? <110 mg/dL ??Borderline high: ??110-129 mg/dL ??High: ?>or= 130 mg/dL Ages > or = 20 years ??Optimal: ? <100 mg/dL ??Near optimal: ?100-129 mg/dL ??Borderline high: ?? 130-159 mg/dL ??High: ?>160 mg/dL Calculated using the Nunez LDL-C estimating equation. This equation was implemented [...] last revised on 2024. Testing performed by: [address] [address] Non-HDL Cholesterol 107 mg/dL [facility] ([place]) [...] last revised on 2018. Testing performed by: [address] [address] Chol/HDL ratio 3 [facility]LMA [facility] ([place]) Comment:Testing performed by : [address] [address] Blood 09/30/2024 8:06 AM ADDICTIONS COUNSELOR ASSISTANT 09/30/2024 12:32 PM ADDICTIONS COUNSELOR ASSISTANT us Ken Chun MD LAB BLOOD ORDERABLES Samantha garcia Result [facility] ([place]) 1 [facility] Department [place] [address] * Comprehensive metabolic panel (09/30/2024 8:06 AM ADDICTIONS COUNSELOR ASSISTANT) Sodium 139 135 - 145 mmol/L Comment:Testing performed by : [facility], [address] [place] [address]., [address] Potassium, pl 4.4 3.3 - 4.9 mmol/L [facility] ([place]) Comment:Testing performed by : [facility], [address] [place] [address]., [address] Chloride 101 97 - 110 mmol/L [facility] ([place]) Comment:Testing performed by : [address] [address] CO2 27 22 - 32 mmol/L [facility] ([place]) Comment:Testing performed by : [address], [address] Anion gap 11 2 - 15 mmol/L [facility] ([place]) Comment:Testing performed by : [address], [address] BUN 16 6 - 25 mg/dL [facility] ([place]) Comment:Testing performed by : [address], [address] Creatinine 0.99 0.80 - 1.30 mg/dL [facility] ([place]) Comment:Testing performed by : [address] [address] Glucose 121 70 - 199 mg/dL [facility] ([place]) Comment: Interpretive Data Fasting glucose >/= [...] was last revised 2022. Testing performed by: [facility], [address] [place] [address]., [address] Calcium 9.3 8.5 - 10.3 mg/dL [facility] ([place]) Comment:Testing performed by : [address], [address] Bilirubin, total 0.6 0.1 - 1.2 mg/dL [facility] ([place]) Comment:Testing performed by : [facility], [address] [place] [address]., [address] Protein, pl 6.9 6.5 - 8.5 g/dL [facility] ([place]) Comment:Testing performed by : [facility], [address] [place] [address]., [address] Albumin 4.2 3.5 - 5.0 g/dL [facility] ([place]) Comment:Testing performed by : [facility], [address] [place] [address]., [address] Alk phos 89 40 - 130 Units/L [facility] ([place]) Comment:Testing performed by : [facility], [address] [place] [address], [address] ALT 21 7 - 55 Units/L [facility] ([place]) Comment:Testing performed by : [facility], [address] [place] [address], [address] AST 24 10 - 50 Units/L [facility] ([place]) Comment:Testing performed by : [facility], [address] [place] [address], [address] Blood 09/30/2024 8:06 AM ADDICTIONS COUNSELOR ASSISTANT 09/30/2024 12:32 PM ADDICTIONS COUNSELOR ASSISTANT Ken Chun MD LAB BLOOD ORDERABLES Samantha garcia Result [facility] Department [place] [address] * XR Shoulder Left 2 or More Views (09/20/2024 2:13 PM ADDICTIONS COUNSELOR ASSISTANT) Anatomical Region Laterality Modality Upper Extremities, Shoulder Left Digi bk Radiography Narrative 09/20/2024 2:24 PM ADDICTIONS COUNSELOR ASSISTANT Four views of the left shoulder negative [...] data last revised 22. Testing performed by: [facility], [address] [place] [address]., [facility] Blood 12/15/2023 3:50 PM CDT 12/15/2023 9:13 PM CDT Ken Chun MD LAB BLOOD ORDERABLES Samantha garcia Result [id number] [place] [facility] Department [place] [address] * COLONOSCOPY (07/23/2022 7:46 AM ADDICTIONS COUNSELOR ASSISTANT) Anatomical Region Laterality Modality Other Narrative Procedure Note Meghann Almaguer MD - 07/23/2022 7:[address] [facility] Patient Name: Lionel Ocampo Procedure Date: 07/23/2022 7:46 AM Date of : 1955 Admit Type: Outpatient Age: 66 Gender: Male Attending MD: Meghann Almaguer M.D. Room: [facility] ENDOSCOPY ROOM 1 Note Status: Finalized Patient [...] under direct vision. The Pediatric Colonoscope PCF-H190L [id number] was introducedthrough the anus and advanced to [...] 7:46 AM Procedure Code(s): --- Professional --- 05588, Colonoscopy, flexible; with biopsy, single or multiple Diagnosis Code(s): --- Professional --- K64.8, Other hemorrhoids D12.2, Benign neoplasm of ascending colon K57.30, Diverticulosis of large intestine without perforation orabscess without bleeding Z86.010, Personal history of colonic polyps CPT copyright 2020 [employer]. All rights reserved. The codes documented in this report are preliminary and upon safety net maker reviewmay be revised to meet current compliance requirements. Recognized by the [employer] for promoting quality in endoscopy Meghann Almaguer MD ENDOSCOPY PROCEDURES Final Result * HEPATITIS C SCREENING (12/03/2016) HEP C Normal Historical Provider HEALTH MAINTENANCE Final Result from Last 3 Months or Most Recently Relevant to Health Maintenance [facility] MEDICARE [facility] MEDICARE [facility] Advance Directives For more information, please contact: [phone] * Full Code (Latest Code Status on File) Date Activated Date Inactivated Comments 07/23/2022 7:58 AM 07/23/2022 2:55 PM * Full Code Date Activated Date Inactivated Comments 07/23/2022 7:58 AM 07/23/2022 7:58 AM * Full Code Date Activated Date Inactivated Comments 03/15/2019 8:00 AM 03/15/2019 2:41 PM * Full Code Date Activated Date Inactivated Comments 03/15/2019 8:00 AM 03/15/2019 8:00 AM 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
--- OUTSIDE RECORDS SUMMARY | 2024-10-12 12:33 | XMS_ITS | Continuity of Care Document ---
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 Name Role Phone Gala Garcia OD Unavailable Unavailable Allergies, Adverse Reactions, Alerts Substance Reaction Status Criticality cefadroxil Active No Information latex Active No Information PENICILLIN Active No Information Medications Medication Instructions Dosage Effective Dates (start - stop) Status Comments atorvastatin 40 mg tablet take 1 tablet by oral route every day 40 MG - Active aspirin 81 mg tablet,delayed release take 1 tablet by oral route every day 81 MG - Active fexofenadine 180 mg tablet take 1 tablet by oral route every day 180 MG - Active metoprolol succinate ER 25 mg tablet,extended release 24 hr take 1 tablet by oral route every day 25 MG - No Longer Active amlodipine 2.5 mg tablet take 1 tablet by oral route every day 2.5 MG - No Longer Active Procedures Procedure Date No Charge Optomap Fundus Photos 023 No Charge Refraction Eye Exam & Treatment No Charge Optomap Fundus Photos 022 Eye Exam & Treatment Fundus Photography W/ Report Eye Exam & Treatment No Charge Optomap Fundus Photos 020 Eye Exam & Treatment Eye Exam & Treatment Office/outpatient Visit, Est Office/outpatient Visit, New Advance Directives Directive Yes / No Effective Date File Name No Information Encounters Encounter Description Practice Location Reason(s) For Visit Diagnoses Date Provider Providers Copied on Encounter [facility], [id number] [place] [address] [address], [place], [place], [address], [place] tel:[phone] SEC [place] Professional Complete Exam (chief complaint) Age-related nuclear cataract, bilateralFamil y history of glaucoma in motherGlaucoma suspect of both eyes 3 Jose OD Gala. [id number] [place] [address] [address], [place], [place], [address], [place]. tel:[phone] Referring Provider: Jay Brito MD, [address] [facility] [address], [place], [address] . tel:[phone] [facility], [address], [place], [place], [address], [place] [phone] SEC [place] Professional Complete Exam (chief complaint) Age-related nuclear cataract, bilateral 2 Stephane Valladares. [address] [facility], [address] [place], [address], [place]. tel:[phone] Referring Provider: Jay Brito MD, [address] [facility] [address], [place], [address] . tel:[phone] [facility], [address] [place] [address] [address], [place], [place], [address], [place] [phone] SEC [place] Professional Complete Exam (chief complaint) Age-related nuclear cataract, bilateralFamil y history of glaucoma in motherHistory of episcleritisTr ansient visual loss of both eyes 1 Calderón Blaine. [address] [facility], [place], [place], [address], [place]. tel:[phone] Referring Provider: Jay Brito MD, [address], [place], [address] . tel:[phone] [facility], [address], [place], [place], [address], [place] tel:[phone] SEC Trung [place] Professional Complete Exam (chief complaint) Age-related nuclear cataract, bilateralHisto ry of episcleritis Vin- 0 Stephane Valladares. [address] [facility], [place], [place], [address], [place]. tel:[phone] Referring Provider: Jay Brito MD, [address] [facility] [address], [place], [address] . tel:[phone] [facility], [address], [place], [place], [address], [place] tel:[phone] SEC Trung [employer] Professional 1 month Complete (chief complaint) History of episcleritisFa farzad history of glaucoma in motherAge-rela rashaad nuclear cataract, bilateral Nov- 9 Stephane Valladares. [address] [facility], [address], [place], [place], [address], [place]. tel:[phone] Referring Provider: Jay Brito MD, [address] [facility] [address], [place], [address] . tel:[phone] Office/outpa tient Visit, [facility], [address], [place], [place], [address], [place] tel:[phone] SEC Trung [employer] Professional Follow up visit (chief complaint) Episcleritis of left eye Oct-2 9 Stephane Valladares. [address] [facility], [place], [place], [address], [place]. tel:[phone] Referring Provider: Jay Brito MD, [address] [facility] [address], [place], [address] . tel:[phone] Office/outpa tient Visit, [facility], [address], [place], [place], [address], [place] tel:[phone] SEC Trung [employer] Professional WIE (chief complaint) Allergic conjunctivitis of left eyeEpiscleriti s of left eye Feb-0 5-201 9 Stephane Valladares. [address] [facility], [address], [place], [place], [address], [place]. tel:[phone] Referring Provider: Jay Brito MD, [address] [facility] [address], [place], [address] . tel:[phone] Family History Family Member Type Diagnosis Age At Onset Mother Problem (finding) glaucoma Mother Problem (finding) Diabetes mellitus Payers Payer name Insurance type Covered green party ID Authoriza tion(s) Medicare ID DARRIAN [id number] [employer] Mdcr Supp CI [id number] Social History Type Description Quantity Date Captured Comments Alcohol Use Details Caffeine Use Details No Tobacco Use Status Current non-smoker Smoking Status Never smoker Non-Smoking Tobacco Use Details : No Details Available : No Details Available Sex Male Chief Complaint And Reason For Visit From encounter dated 08/12/2023 09:30'. Complete Exam (chief complaint). Description: The 67 year old patient presents for evaluation of Complete Exam in the right eye and left eye. Patient being monitored for cataracts OU. Patient states the vision is stable at both distance and near. The patient prefers to not drive at night, but denies this being any worse than last year. Denies pain/dryness. No gtts. Reason For Referral Reason For Referral No Information Plan Of Treatment Date Type Action Status Patient Education The Eye: Anatomy Sketch completed Patient Education Cataracts: Care Instruc tions completed Patient Education Cataracts: Care Instruc tions completed Patient Education Cataracts: Care Instruc tions completed Patient Education Episcleritis: Care Inst ructions completed Patient Education Episcleritis: Care Inst ructions completed History Of Present Illness Encounter Date Complaint History Of Prese nt Illness Complete Exam The 67 year old patient presents for evaluation of Complete Exam in the right eye and left eye. Patient being monitored for cataracts OU. Patient states the vision is stable at both distance and near. The patient prefers to not drive at night, but denies this being any worse than last year. Denies pain/dryness. No gtts. Complete Exam The 66 year old patient presents for evaluation of Complete Exam in the right eye and left eye. Pt states Ou vision is clear and stable at distance and near x 1 yr. Complete Exam The 65 year old male presents for evaluation of Complete Exam in the right eye and left eye. Hx of CAT OU and Episcleritis OS. Pt reports he doesn't use any gtts, OU. Pt reports stable VA, OU, DV and NV, since last appt. Complete Exam The 64 year old male presents for evaluation of Complete Exam in the right eye and left eye. Hx of Episcleritis OS and mild Cataracts OU. Patient denies any problems or changes with VA. 1 month Complete The 63 year old male presents for evaluation of 1 month Complete in the right eye and left eye. Hx of Episcleritis OS. Patient denies any problems or changes with eyes. Denies burning, itching, or irritation. Follow up visit The 63 year old male presents for a 2 week Episcleritis OS follow up. Patient is finished with FML. Patient states OS is doing ok. Patient states he just thinks about it . Patient states the redness and irritation are gone. WIE The 63 year old male presents for evaluation of WIE in the left eye. Patient states about a week ago the left eye started with irritation then tender to touch now the eye is red and hurts. No gtts at this time. Functional Status Date Functional Assessmen t No Information Instructions Date Instruction Additional Infor mckinley Impression/Plan Impression/Plan Impression/Plan Impression/Plan Impression/Plan Impression/Plan Impression/Plan Assessments Type Assessment Date assessment Age-related nuclear cataract, bi lateral assessment Family history of glaucoma in mo ther assessment Glaucoma suspect of both eyes De Patient Care Teams Name Effective Dates (start - stop) Status Members No Information
[2024-10-12 12:34] VITALS: BP 114/56; PULSE 103; RESP 20; TEMP 38.2; O2SAT 97
--- NOTE | 2024-10-12 12:41 | ED.NAVMDI ---
HPI - Nausea/Vomiting/Diarrhea General Chief complaint: Nausea/Vomiting/Diarrhea Stated complaint: flu symptoms Time Seen by Provider: 10/12/24 12:42 Source: patient and RN notes reviewed Mode of arrival: ambulatory Limitations: no limitations History of Present Illness HPI Narrative: 69 y/o male with hx abdominal hernia presented for c/o nausea, vomiting diarrhea. Onset 0300. Pt took 3 imodium and a zofran since onset and reports symptoms are subsiding. Endorses weakness and fatigue. States his was in the ER with similar symptoms 24 hours prior to his symptom onset. Tolerating water and gatorade. Pt states he had been vomiting yellow, then red from gatorade, and endorses he had brown emesis for which he called his PCP and was advised evaluation. Pt denies coffee ground appearing emesis, states it was liquid bile. Denies chest pain, abdominal pain hematochezia, melena, hematemesis, or fever. Related Data Home Medications ?Medication ?Instructions ?Recorded ?Confirmed ?Last Taken ?Type aspirin 81 mg chewable tablet 10/12/24 Unknown History atorvastatin 40 mg tablet mg 10/12/24 Unknown History doxazosin 2 mg tablet mg 10/12/24 Unknown History fexofenadine 180 mg tablet mg 10/12/24 Unknown History Allergies Allergy/AdvReac Type Severity Reaction Status Date / Time latex Allergy Unknown Unknown Verified 10/12/24 12:43 Penicillins Allergy Unknown Unknown Verified 10/12/24 12:43 Review of Systems Review of Systems: per HPI All systems reviewed & are unremarkable except as noted in HPI and below PMFSH Comments At time of signature, I have reviewed and agree with nursing past medical, surgical, social and family history unless otherwise noted. Please see nursing chart for further information. There is no relevant family history pertinent to the presenting complaint Exam Narrative: GENERAL: Well-appearing, and in no acute distress. EYES: EOMI. Conjunctivae normal. ENT: Mucous membranes pink and moist. CHEST: No respiratory distress. Clear to auscultation. HEART: Regular rate and rhythm. No murmur appreciated. Normal peripheral pulses. ABDOMEN: abd soft, nondistended, normal active bowel sounds. Mildly Tender abdomen to epigastric: No guarding, rebound tenderness, asymmetry EXTREMITIES: Normal range of motion. No edema. SKIN: Warm, dry, no rash. Capillary refill normal. Normal skin turgor. NEURO: No focal deficits. Alert and oriented x3. PSYCH: Normal affect. Course Course Emergency Course: Patient is aware of diagnosis, understands and agrees to treatment plan. Anticipatory guidance given. Patient agrees to follow-up as directed and is aware of reasons to seek care at the emergency department. Portions of this record may have been created with voice recognition software Level of Care: Express Care Visit MDM - Nausea/Vomiting/Diarrhea MDM Narrative Medical decision making narrative: Discussed physical exam findings, and discussed etiologies of symptoms. Pt does not describe seeing coffee ground emesis. Agreeable for zofran rx. Advised supportive measures and signs/symptoms to go to the ER. Pt is appropriate for outpt treatment and f/u. Differential Diagnosis Differential diagnosis: Likely traveler's diarrhea, food poisoning, gastroenteritis, clostridium difficile infection, drug-induced nausea and vomiting and dehydration Discharge Plan Discharge Clinical Impression: Nausea vomiting and diarrhea Patient Disposition: Home, Self-Care Condition: Stable Instructions: Antibiotic Form, Gastroenteritis (ED) Additional Instructions: Stay hydrated. Take small sips of fluid containing electrolytes frequently. Clear liquids (broth, jello, tea, sprite, pedialyte) slowly advance to [place] foods (bananas, rice, applesauce, toast, crackers) Avoid fatty, greasy, fried or spicy foods. Limit dairy until symptoms are improved. [id number] Imodium according to package directions Recommend probiotic such as align or lactobacillus to help with symptoms. You should go to the hospital if you experience persistent nausea and vomiting that does not resolve and does not allow you to tolerate any food or fluids, fevers, increasing abdominal pain, persistent diarrhea, dizziness, fainting, or for any other concerns. Follow up with primary care provider in 3 days. Patient Language: Yakut Prescriptions: New ondansetron 4 mg tablet,disintegrating 4 mg PO Q8H PRN (Reason: nausea and vomiting) Qty: 12 0RF No Action atorvastatin 40 mg tablet fexofenadine 180 mg tablet aspirin 81 mg tablet,chewable doxazosin 2 mg tablet Follow-up/Referrals: Harms,Ken Cannon M.D. [Primary Care Provider] - Time of Disposition: 12:55
== END 2024-10-12 13:07 | disposition home or self-care (01) ==
PROVIDERS: Emergency Provider Nurse Practitioner Family; PCP Family Medicine
DX: R11.2 Nausea with vomiting, unspecified (principal); R19.7 Diarrhea, unspecified; E78.00 Pure hypercholesterolemia, unspecified
CPT/HCPCS: 99203; G0463